=== PATIENT | male | born 1960 | race Caucasian/White ===

== ENCOUNTER 2016-10-04 01:30 | Emergency (ER) | payer MEDICAID, OTHER ==
[~2016-10-04] VITALS: Ht 180.3 cm; Wt 83.0 kg
[~2016-10-04 01:30] MED LIST: CEPH-443 PO; IBUP-1542 PO
[2016-10-04 01:50] VITALS: Ht 180.3 cm; Wt 83.0 kg
--- NOTE | 2016-10-04 03:25 | ERD ---
ER Documentation Chief Complaint Date/Time DATE: 10/04/16 TIME: 03:24 Chief Complaint RIGHT LEG PAIN X 2 WEEKS, NO INJURY HPI 56-year-old male presents here in emergency department for complaint of right lower leg pain for 2 weeks now. Patient describes the pain as throbbing pain, 6/ 10 scale, is worse upon walking. Patient did not have trauma on affected area. Patient was seen by primary care doctor, was told to possibly have some muscle strain, is given ibuprofen. Patient continues to have the pain. Patient denies any redness or swelling. Patient denies any fever or chills. Patient denies any numbness or tingling. ROS All systems reviewed and are negative except as per history of present illness. Medications Home Meds Active Scripts Ibuprofen* (Motrin*) 600 Mg Tab, 600 MG PO Q6H Y for PAIN AND OR ELEVATED TEMP, #30 TAB Prov:ULISSES VALENTINE RECRUITER 10/21/15 Cephalexin* (Keflex*) 500 Mg Capsule, 500 MG PO QID for 5 Days, CAP Prov:ULISSES VALENTINE RECRUITER 10/21/15 Reported Medications [none] Unknown Strength No Conflict Check 10/21/15 Allergies Allergies: Coded Allergies: No Known Allergy (Unverified , 10/20/15) PMhx/Soc History of Surgery: Yes (hemorrhoidectomy) Anesthesia Reaction: No Hx Neurological Disorder: No Hx Respiratory Disorders: No Hx Cardiac Disorders: No Hx Psychiatric Problems: No Hx Miscellaneous Medical Probl: Yes (HEP C) Hx Alcohol Use: No Hx Substance Use: Yes (marijuana, methamphetamine) Hx Tobacco Use: Yes Smoking Status: Current some day smoker FmHx Family History: No coronary disease, No diabetes, No other Physical Exam Vitals Vital Signs Date Time Temp Pulse Resp B/P Pulse Ox O2 Delivery O2 Flow Rate FiO2 10/04/16 01:50 97.7 90 20 118/74 94 Physical Exam GENERAL: The patient is well developed and appropriate for usual state of health, in no apparent distress. CHEST: Clear to auscultation bilaterally. There are no rales, wheezes or rhonchi. HEART: Regular rate and rhythm. No murmurs, clicks, rubs or gallops. No S3 or S4. ABDOMEN: Soft, nontender and nondistended. Good bowel sounds. No rebound or guarding. No gross peritonitis. No gross organomegaly or masses. No Barone sign or McBurney point tenderness. BACK: No midline or flank tenderness. EXTREMITIES: Tenderness on palpation on right akhtar, no swelling noted, no ecchymosis, able to do full range of motion of the right knee and right ankle without any restriction. Equal pulses bilaterally. There is no peripheral clubbing, cyanosis or edema. No focal swelling or erythema. Full range of motion. Grossly neurovascularly intact. NEURO: Alert and oriented. Cranial nerves 2-12 intact. Motor strength in all 4 extremities with 5/5 strength. Sensation grossly intact. Normal speech and gait. SKIN: There is no apparent rash or petechia. The skin is warm and dry. HEMATOLOGIC AND LYMPHATIC: There is no evidence of excessive bruising or lymphedema. No gross cervical, axillary, or inguinal lymphadenopathy. Results 24 hrs PROCEDURE: XR Tibia and Fibula. CLINICAL INDICATION: Right leg pain TECHNIQUE: AP and lateral views of the right tibia and fibula are available for review. COMPARISON: None available FINDINGS: No fracture or dislocation is seen. Mild osteophytic spurring arising from the articular surface of the patella. Mild osteoarthrosis at ankle. Small posterior calcaneal spur. IMPRESSION: No acute abnormality seen. Please see above. RPTAT: HJES .Obinna Cat MD, MD Date Time Electronically viewed and signed by .Obinna Cat MD, MD on 10/04/2016 03:31 .S/ CC: ULISSES VALENTINE RECRUITER Procedures/MDM Medical Decision Making: Patient's pain is most likely consistent with a contusion or a sprain. There is no suspicion for neurovascular compromise. Patient has intact sensation and circulation of the affected extremity. There is low suspicion for septic arthritis. Patient does not have any fever. Radiology exams of the affected area does not show any fracture or dislocation. Disposition: Home. Patient is given prescription for ibuprofen for pain, tramadol for severe pain. Patient was advised to elevate the affected area and apply ice on affected area. Patient was advised that if symptoms are worse, numbness, tingling, high fever, unable to move joint, worsening symptoms, to return to emergency department immediately. Otherwise, patient is advised to follow up with the primary care doctor in 5-7 days for reevaluation of symptoms. Departure Diagnosis: Primary Impression: Pain of left leg Condition: Stable Patient Instructions: Contusion, Lower Extremity Additional Instructions: Patient is given prescription for ibuprofen for pain, tramadol for severe pain. Patient was advised to elevate the affected area and apply ice on affected area. Patient was advised that if symptoms are worse, numbness, tingling, high fever, unable to move joint, worsening symptoms, to return to emergency department immediately. Otherwise, patient is advised to follow up with the primary care doctor in 5-7 days for reevaluation of symptoms. ULISSES VALENTINE NP Oct 04, 2016 03:25
--- NOTE | 2016-10-04 03:32 | RADRPT ---
PROCEDURE: XR Tibia and Fibula. CLINICAL INDICATION: Right leg pain TECHNIQUE: AP and lateral views of the right tibia and fibula are available for review. COMPARISON: None available FINDINGS: No fracture or dislocation is seen. Mild osteophytic spurring arising from the articular surface of the patella. Mild osteoarthrosis at ankle. Small posterior calcaneal spur. IMPRESSION: No acute abnormality seen. Please see above. RPTAT: HJES .Obinna Cat MD, MD Date Time Electronically viewed and signed by .Obinna Cat MD, on 10/04/2016 03:31 .S/
[2016-10-04] MEDS ORDERED: TRAM50TA2 PO (04:45)
== END 2016-10-04 04:58 | disposition home or self-care (01) ==
LOC: FTE 01:30
DX: M79.605 Pain in left leg (principal); F17.210 Nicotine dependence, cigarettes, uncomplicated
CPT/HCPCS: 73590; Z7502

== ENCOUNTER 2017-02-03 21:26 | Emergency (ER) | payer OTHER ==
[~2017-02-03] VITALS: Ht 180.3 cm; Wt 81.8 kg
[~2017-02-03 21:26] MED LIST changes: +TRAM50TA2 PO
[2017-02-03 21:35] VITALS: Ht 180.3 cm; Wt 81.8 kg
--- NOTE | 2017-02-03 21:40 | ERD ---
ER Documentation Chief Complaint Date/Time DATE: 02/03/17 TIME: 21:39 Chief Complaint HPI This 56-year-old male presents to the emergency room for evaluation of a blood draw. The patient is in custody with [employer]. The patient has no medical complaints at this time. ROS All systems reviewed and are negative except as per history of present illness. Medications Home Meds Active Scripts Tramadol HCl (Tramadol HCl) 50 Mg Tablet, 50 MG PO Q6 Y for SEVERE PAIN LEVEL 7- 10, #20 TAB Prov:ULISSES VALENTINE [employer] 10/04/16 Ibuprofen* (Motrin*) 600 Mg Tab, 600 MG PO Q6H Y for PAIN AND OR ELEVATED TEMP, #30 TAB Prov:ULISSES VALENTINE [employer] 10/21/15 Cephalexin* (Keflex*) 500 Mg Capsule, 500 MG PO QID for 5 Days, CAP Prov:ULISSES VALENTINE [employer] 10/21/15 Reported Medications [none] Unknown Strength No Conflict Check 10/21/15 Allergies Allergies: Coded Allergies: No Known Allergy (Unverified , 10/20/15) PMhx/Soc History of Surgery: Yes (hemorrhoidectomy) Anesthesia Reaction: No Hx Neurological Disorder: No Hx Respiratory Disorders: No Hx Cardiac Disorders: No Hx Psychiatric Problems: No Hx Miscellaneous Medical Probl: Yes (HEP C) Hx Alcohol Use: No Hx Substance Use: Yes (marijuana, methamphetamine) Hx Tobacco Use: Yes Physical Exam Physical Exam Const: No acute distress Head: Atraumatic Eyes: Normal Conjunctiva ENT: Normal External Ears, Nose and Mouth. Neck: Full range of motion..~ No meningismus. Resp: Clear to auscultation bilaterally Cardio: Regular rate and rhythm, no murmurs Abd: Soft, non tender, non distended. Normal bowel sounds Skin: No petechiae or rashes Back: No midline or flank tenderness Ext: No cyanosis, or edema Neur: Awake and alert Psych: Normal Mood and Affect Procedures/MDM This 56-year-old male presents to the emergency room custody with [employer] for a blood alcohol draw. I did a medical screening exam this patient has no medical complaints at this time. Our quality lab assoc has drawn blood and the patient will be discharged in police custody at this time Departure Diagnosis: Primary Impression: Encounter for medical screening examination Condition: Fair PEGGY LIMON DO Feb 03, 2017 21:40
== END 2017-02-03 21:50 | disposition home or self-care (01) ==
LOC: E/R 21:26
DX: Z00.00 Encounter for general adult medical examination without abnormal findings (principal)
CPT/HCPCS: 99282